=== PATIENT | female | born 1985 | race African-American/Black ===

== ENCOUNTER 2018-02-06 21:50 | Emergency (ER) | payer SELFPAY ==
[~2018-02-06] VITALS: Ht 162.6 cm; Wt 63.0 kg
[~2018-02-06 21:50] MED LIST: BC PILL; DEPO PROVERA
[2018-02-06] MEDS ORDERED: KETOROLAC 60MG/2ML VIAL IM ONE (23:00)
[2018-02-07 00:35] VITALS: BP 120/85
== END 2018-02-07 00:38 | disposition home or self-care (01) ==
LOC: ER 21:50
DX: S60.222A Contusion of left hand, initial encounter (principal); F17.200 Nicotine dependence, unspecified, uncomplicated; F12.10 Cannabis abuse, uncomplicated; Z98.890 Other specified postprocedural states; W01.0XXA Fall on same level from slipping, tripping and stumbling without subsequent striking against object, initial encounter; Y93.89 Activity, other specified; Y92.018 Other place in single-family (private) house as the place of occurrence of the external cause
CPT/HCPCS: 96372; 99283; J1885; Z7610

== ENCOUNTER 2018-04-05 15:26 | Emergency (ER) | payer SELFPAY ==
[~2018-04-05] VITALS: Ht 165.1 cm; Wt 61.0 kg
[2018-04-05 15:59] VITALS: BP 111/80
== END 2018-04-05 19:20 | disposition home or self-care (01) ==
LOC: ER 15:26
DX: S51.812D Laceration without foreign body of left forearm, subsequent encounter (principal); W25.XXXD Contact with sharp glass, subsequent encounter
CPT/HCPCS: 12002; 99283

== ENCOUNTER 2018-07-31 11:51 | Emergency (ER) | payer SELFPAY ==
[~2018-07-31] VITALS: Ht 160 cm; Wt 63.0 kg
[2018-07-31] MEDS ORDERED: VISCOUS LIDOCAINE 2% 15 ML UDC PO ONE (13:00)
[2018-07-31] MEDS ORDERED: MAGNESIUM/ALUMINUM HYDROXIDE/SIMETHICONE 30ML UDC PO ONE (13:00)
[2018-07-31 13:28] LABS: BASOPHILS % 1.2 % (0.0-2.0); EOSINOPHILS % 1.4 % (0.0-5.0); HEMATOCRIT. 40.3 % (36.0-48.0); HEMOGLOBIN. 13.5 g/dL (12.0-16.0); LYMPHOCYTES % 37.6 % (20.0-50.0); MEAN CORPUSCULAR HEMOGLOBIN 31.9 pg (28.0-32.0); MEAN CORPUSCULAR VOLUME 95.1 fL (81.0-99.0); MEAN PLATELET VOLUME 8.3 fl (7.4-10.4); MONOCYTES % 8.2 % (2.0-8.0); NEUTROPHILS % 51.6 % (40.0-76.0); PLATELET 300 x1000/uL (130-400); RED BLOOD CELL COUNT 4.24 mill/uL (4.2-5.4); RED CELL DISTRIBUTION WIDTH 13.5 % (11.6-14.6)
[2018-07-31 13:34] LABS: CHLORIDE 106 mEq/L (98-107)
[2018-07-31] MEDS ORDERED: KETOROLAC 30MG/ML VIAL IV ONE (14:30)
[2018-07-31 17:36] VITALS: BP 121/88
== END 2018-07-31 17:51 | disposition home or self-care (01) ==
LOC: ER 11:51
DX: M94.0 Chondrocostal junction syndrome [Tietze] (principal); R07.89 Other chest pain; F17.200 Nicotine dependence, unspecified, uncomplicated
CPT/HCPCS: 36415; 71045; 80053; 83880; 84484; 85025; 93005; 96374; 99284; J1885

== ENCOUNTER 2020-05-15 04:58 | Emergency (ER) | payer MEDICAID ==
[~2020-05-15] VITALS: Ht 157.5 cm; Wt 78.0 kg
[2020-05-15] MEDS ORDERED: ACETAMINOPHEN 500MG TABLET PO ONE (05:30)
[2020-05-15] MEDS ORDERED: BACITRACIN ZINC OINT UDPKT TOP ONE (05:30)
[2020-05-15 05:42] VITALS: BP 141/82
[2020-05-15] MEDS ORDERED: IBUPROFEN 600MG TABLET PO ONE (05:45)
== END 2020-05-15 05:56 | disposition left against medical advice (07) ==
LOC: ER 04:58
DX: S80.212A Abrasion, left knee, initial encounter (principal); S80.211A Abrasion, right knee, initial encounter; S50.312A Abrasion of left elbow, initial encounter; S50.311A Abrasion of right elbow, initial encounter; Y08.89XA Assault by other specified means, initial encounter; W01.0XXA Fall on same level from slipping, tripping and stumbling without subsequent striking against object, initial encounter; Y93.89 Activity, other specified; Y92.488 Other paved roadways as the place of occurrence of the external cause
CPT/HCPCS: 99283

== ENCOUNTER 2020-12-01 11:12 | Inpatient (IN) | payer MEDICAID ==
[~2020-12-01] VITALS: Ht 152.4 cm; Wt 63.5 kg
[2020-12-01] MEDS ORDERED: ACETAMINOPHEN 325MG TABLET PO ONE (11:45)
[2020-12-01 12:08] LABS: HEMATOCRIT. 40.8 % (36.0-48.0); HEMOGLOBIN. 13.9 g/dL (12.0-16.0); MEAN CORPUSCULAR HEMOGLOBIN 33.5 pg (28.0-32.0); MEAN CORPUSCULAR VOLUME 98.4 fL (81.0-99.0); MEAN PLATELET VOLUME 8.1 fl (7.4-10.4); PLATELET 267 x1000/uL (130-400); RED BLOOD CELL COUNT 4.15 mill/uL (4.2-5.4); RED CELL DISTRIBUTION WIDTH 13.9 % (11.6-14.6)
[2020-12-01 12:16] LABS: CHLORIDE 100 mEq/L (98-107)
[2020-12-01 12:24] LABS: HCG SCREEN NEGATIVE
[2020-12-01] MEDS ORDERED: KETOROLAC 30MG/ML VIAL IV ONE (12:45)
[2020-12-01 12:48] LABS: PLATELET ESTIMATE NORMAL
[2020-12-01] MEDS ORDERED: SODIUM CHLORIDE 0.9% 1,000 ML IV ONE ×3 (13:00→22:00)
[2020-12-01] MEDS ORDERED: CEFTRIAXONE 1 G PREMIX 50 ML IV ONE (13:00)
[2020-12-01] MEDS ORDERED: IOHEXOL-300 100 ML BOTTLE ONE (14:41)
[2020-12-01] MEDS ORDERED: HYDROCODONE/ACETAMINOPHEN 5/325MG TABLET PO ONE (15:00)
[2020-12-01 15:38] LABS: CLARITY URINE CLEAR (CLEAR); COLOR URINE YELLOW (YELLOW); KETONES URINE TRACE (NEGATIVE); LEUKOCYTE ESTERASE URINE NEGATIVE (NEGATIVE); NITRITE URINE POSITIVE (NEGATIVE); OCCULT BLOOD URINE NEGATIVE (NEGATIVE); PH URINE 6.5 (4.5-8.0); PROTEIN URINE NEGATIVE (NEGATIVE); SPECIFIC GRAVITY URINE 1.062 (1.005-1.030)
[2020-12-01 15:54] LABS: *AMPHETAMINES SCREEN URINE NEGATIVE (NEGATIVE)
[2020-12-01 15:55] LABS: *BARBITURATES SCREEN URINE NEGATIVE (NEGATIVE); *BENZODIAZEPINES SCREEN URINE NEGATIVE (NEGATIVE); METHADONE URINE SCREEN NEGATIVE (NEGATIVE); OPIATES URINE SCREEN NEGATIVE (NEGATIVE); PHENCYCLIDINE URINE SCREEN NEGATIVE (NEGATIVE)
[2020-12-01 16:02] LABS: *COCAINE SCREEN URINE PRESUMTIVE POSITIVE (NEGATIVE); CANNABINOID URINE SCREEN PRESUMTIVE POSITIVE (NEGATIVE)
[2020-12-01 17:19] LABS: HEMATOCRIT. 37.3 % (36.0-48.0); HEMOGLOBIN. 12.6 g/dL (12.0-16.0); MEAN CORPUSCULAR HEMOGLOBIN 33.3 pg (28.0-32.0); MEAN CORPUSCULAR VOLUME 98.5 fL (81.0-99.0); MEAN PLATELET VOLUME 8.1 fl (7.4-10.4); PLATELET 237 x1000/uL (130-400); RED BLOOD CELL COUNT 3.79 mill/uL (4.2-5.4); RED CELL DISTRIBUTION WIDTH 13.7 % (11.6-14.6)
[2020-12-01 18:44] LABS: PLATELET ESTIMATE NORMAL
[2020-12-01] MEDS ORDERED: LEVOFLOXACIN 500MG PREMIX 100 ML IV NR (22:00)
[2020-12-01] MEDS ORDERED: MORPHINE SULFATE 2 MG/ML CPJ (NOT FOR IM USE) IV PRN (23:00)
[2020-12-02 08:20] VITALS: BP 106/71
[2020-12-02 08:30] VITALS: BP 106/71
[2020-12-02] MEDS ORDERED: ACETAMINOPHEN 325MG TABLET PO PRN (11:30)
[2020-12-02] MEDS ORDERED: POTASSIUM CHLORIDE 20MEQ TABLET SR PO NR (11:30)
[2020-12-02 12:00] VITALS: BP_SYST 119; BP_SYST 134; BP_DIAS 82
[2020-12-02] MEDS ORDERED: NALOXONE HCL 0.4MG/ML VIAL IV PRN (13:30)
[2020-12-02] MEDS: PIPERACILLIN/TAZOBACTAM 3.375 G in DEXTROSE 5% WATER 50 ML IV SCH ×2 (13:41→18:41)
[2020-12-02] MEDS: HYDROCODONE/ACETAMINOPHEN 5/325MG TABLET PO PRN ×3 (13:42→22:53)
[2020-12-02 16:00] VITALS: BP 119/82
[2020-12-02 20:00] VITALS: BP 128/85
[2020-12-03 00:43] VITALS: BP 117/92
[2020-12-03 04:00] VITALS: BP 107/67
[2020-12-03 05:55] LABS: HEMATOCRIT. 37.8 % (36.0-48.0); HEMOGLOBIN. 12.7 g/dL (12.0-16.0); MEAN CORPUSCULAR HEMOGLOBIN 33.1 pg (28.0-32.0); MEAN CORPUSCULAR VOLUME 98.4 fL (81.0-99.0); MEAN PLATELET VOLUME 8.8 fl (7.4-10.4); PLATELET 223 x1000/uL (130-400); RED BLOOD CELL COUNT 3.84 mill/uL (4.2-5.4); RED CELL DISTRIBUTION WIDTH 13.7 % (11.6-14.6)
[2020-12-03 06:08] LABS: CHLORIDE 103 mEq/L (98-107)
[2020-12-03] MEDS: PIPERACILLIN/TAZOBACTAM 3.375 G in DEXTROSE 5% WATER 50 ML IV SCH ×4 (06:17→19:10)
[2020-12-03] MEDS ORDERED: POTASSIUM CHLORIDE 20MEQ TABLET SR PO SCH (09:00)
[2020-12-03] MEDS: HYDROCODONE/ACETAMINOPHEN 5/325MG TABLET PO PRN ×2 (09:28→15:35)
[2020-12-03] MEDS ORDERED: MORPHINE SULFATE 2 MG/ML CPJ (NOT FOR IM USE) IV NR (19:45)
[2020-12-03 20:00] VITALS: BP 139/84
[2020-12-04] VITALS: BP 132/87
[2020-12-04] MEDS: PIPERACILLIN/TAZOBACTAM 3.375 G in DEXTROSE 5% WATER 50 ML IV SCH ×5 (00:25→23:44)
[2020-12-04] MEDS: HYDROCODONE/ACETAMINOPHEN 5/325MG TABLET PO PRN ×5 (00:33→23:44)
[2020-12-04 04:00] VITALS: BP 114/80
[2020-12-04 07:30] LABS: HEMATOCRIT. 39.1 % (36.0-48.0); HEMOGLOBIN. 13.2 g/dL (12.0-16.0); MEAN CORPUSCULAR HEMOGLOBIN 33.2 pg (28.0-32.0); MEAN CORPUSCULAR VOLUME 98.6 fL (81.0-99.0); MEAN PLATELET VOLUME 8.4 fl (7.4-10.4); PLATELET 267 x1000/uL (130-400); RED BLOOD CELL COUNT 3.97 mill/uL (4.2-5.4); RED CELL DISTRIBUTION WIDTH 13.6 % (11.6-14.6)
[2020-12-04 07:34] LABS: CHLORIDE 99 mEq/L (98-107)
[2020-12-04 08:00] VITALS: BP 130/92
[2020-12-04] MEDS: ONDANSETRON HCL 4MG/2ML INJ IV PRN ×2 (10:04→18:05)
[2020-12-04 12:00] VITALS: BP 103/72
[2020-12-04 16:00] VITALS: BP 140/88
[2020-12-04 17:20] LABS: PLATELET ESTIMATE NORMAL
[2020-12-04 19:08] LABS: PLATELET ESTIMATE NORMAL
[2020-12-04 20:00] VITALS: BP 132/92
[2020-12-05] VITALS: BP 118/82
[2020-12-05 04:00] VITALS: BP 108/70
[2020-12-05] MEDS: PIPERACILLIN/TAZOBACTAM 3.375 G in DEXTROSE 5% WATER 50 ML IV SCH ×3 (05:52→18:58)
[2020-12-05] MEDS: HYDROCODONE/ACETAMINOPHEN 5/325MG TABLET PO PRN ×3 (05:57→18:59)
[2020-12-05 07:51] LABS: BASOPHILS % 0.2 % (0.0-2.0); EOSINOPHILS % 0.9 % (0.0-5.0); HEMATOCRIT. 36.4 % (36.0-48.0); HEMOGLOBIN. 12.3 g/dL (12.0-16.0); LYMPHOCYTES % 7.7 % (20.0-50.0); MEAN CORPUSCULAR HEMOGLOBIN 33.1 pg (28.0-32.0); MEAN CORPUSCULAR VOLUME 98.2 fL (81.0-99.0); MEAN PLATELET VOLUME 8.3 fl (7.4-10.4); MONOCYTES % 9.4 % (2.0-8.0); NEUTROPHILS % 81.8 % (40.0-76.0); PLATELET 303 x1000/uL (130-400); RED CELL DISTRIBUTION WIDTH 13.5 % (11.6-14.6)
[2020-12-05 08:00] VITALS: BP 118/78
[2020-12-05 08:04] LABS: CHLORIDE 96 mEq/L (98-107)
[2020-12-05] MEDS ORDERED: POTASSIUM CHLORIDE 20MEQ TABLET SR PO SCH (09:00)
[2020-12-05 12:00] VITALS: BP 123/89
[2020-12-05 16:00] VITALS: BP 127/82
[2020-12-05 20:00] VITALS: BP 127/88
[2020-12-06] VITALS: BP 127/85
[2020-12-06] MEDS: PIPERACILLIN/TAZOBACTAM 3.375 G in DEXTROSE 5% WATER 50 ML IV SCH ×3 (00:09→12:00)
[2020-12-06] MEDS: HYDROCODONE/ACETAMINOPHEN 5/325MG TABLET PO PRN ×2 (00:10→10:42)
[2020-12-06 04:00] VITALS: BP 121/82
[2020-12-06 08:00] VITALS: BP 106/75
[2020-12-06 10:42] VITALS: BP 106/75
== END 2020-12-06 15:18 | disposition home or self-care (01) | DRG 720 ==
LOC: ER 11:12 → 6EST 21:45 → ENRESERV 12-02 07:47
PROVIDERS: ADMIT Internal Medicine; ATTEND Internal Medicine
DX: A41.9 Sepsis, unspecified organism (principal); E87.1 Hypo-osmolality and hyponatremia; F12.90 Cannabis use, unspecified, uncomplicated; F14.90 Cocaine use, unspecified, uncomplicated; K52.9 Noninfective gastroenteritis and colitis, unspecified; N39.0 Urinary tract infection, site not specified; D25.9 Leiomyoma of uterus, unspecified; E87.6 Hypokalemia; Z20.822 Contact with and (suspected) exposure to COVID-19
CPT/HCPCS: 36415; 71045; 74177; 76830; 76856; 80048; 80053; 80305; 81003; 83605; 84703; 85025; 87426; 99285; J0696; J1885; J1956; J2270; J2405; J2543; J7030; J7060; Q9967

== ENCOUNTER 2021-07-28 13:04 | Emergency (ER) | payer MEDICAID, OTHER ==
[~2021-07-28] VITALS: Ht 160 cm; Wt 60.0 kg
[2021-07-28 13:07] VITALS: BP 123/85
[2021-07-28] MEDS ORDERED: ONDANSETRON HCL 4MG/2ML INJ IV STA (13:34)
== END 2021-07-28 14:55 | disposition left against medical advice (07) ==
LOC: ER 13:04
DX: Z53.21 Procedure and treatment not carried out due to patient leaving prior to being seen by health care provider (principal)
CPT/HCPCS: 93005